=== PATIENT | male | born 1955 | race Caucasian/White ===

== ENCOUNTER 2024-02-23 10:36 | Outpatient (AMB) | payer MEDICARE, SELFPAY ==
--- NOTE | 2024-02-23 10:59 | HO.SPINEOV ---
Intake Visit Reasons: second opinion spinal stenosis Intake Note: Mr. Graves is here today for a second opinion spinal stenosis. Tax Representative Required: No Allergies statins Adverse Reaction (Uncoded 02/23/24 11:03) pain in the legs Assessment & Plan Assessment & Plan (1) Lumbar stenosis with neurogenic claudication: Code(s): M48.062 - Spinal stenosis, lumbar region with neurogenic claudication Category: Medical Plan Dear colleague On 02/23/2024 I saw for 2nd opinion Dustin Oh with a chief complaint of bilateral leg pain and numbness. HPI: This 68-year-old active male fell multiple times after pickleball. Several months later he developed severe shooting pains down his legs and numbness. The symptoms are going on for approximately 1 year. He has a constant pain in her right upper thigh and a diffuse pain in both legs that can altered [place] in location. He wakes up in the morning with numbness of both his legs. He tried 3 epidural steroid injections which gave him temporary good relief. When they wear off he can hardly walk and he is on the ground from pain . The symptoms significantly affect his daily function. Gabapentin provides no relief. He takes anti-inflammatory drugs and Tylenol. He tried physical therapy without success. PMH: Hypertension and hypercholesterolemia Medications: Lisinopril, Justin Allergies: Statins Social history: . Retired. Active aviator. Physical Exam: Pleasant male accompanied by his . The epidural steroid injection is still active and therefore he does not have a lot of complaints on exam. There is mild numbness in the bilateral L5 area. Motor exam is intact. Reflexes are low. No pathological reflexes. Radiological Studies: MRI done at [place] on on 05/11/2023 shows severe spinal stenosis L2-3, L3-4 and L4-5 with crowding of the cauda equina above the stenosis. In addition, there is extensive arthritic changes of the lumbar spine with lumbar degenerative disc disease and collapse and facet hypertrophy. A dynamic lumbar x-ray obtained today shows a minimal L4-5 anterolisthesis without instability. No scoliosis. Impression/Plan: This patient is suffering from neurogenic claudication with neurological deficits that are affecting his daily functioning. Injections provide temporary relief. The patient is petrified fo return of those shooting electric shocks down his legs. He denies a significant amount back pain. I offered him a three-level lumbar decompression in the absence of major back pain. I described the procedure that will be done in day surgery and expected postoperative course. I quoted him an 80% success rate for relief of his neurogenic symptoms. Patient will call my office if he wants me to perform the procedure. Thank you for allowing me to participate in your patients care. total time spent was sixty minutes in counseling ,coordination of plan, personal review of imaging, surgical decision making and subsequent plan Hayden Perez MD, PhD Spine Fellowship Trained Neurosurgeon Director, [facility] Orders: Orders XR lumbar spine 4V min Today M48.062 - Spinal stenosis, lumbar region with neurogenic claudication Coding Level of Care Code New Pt Level 5 (75513) Diagnoses Lumbar stenosis with neurogenic claudication M48.062
== END 2024-02-23 12:48 | disposition home or self-care (01) ==
PROVIDERS: Visit Provider Neurological Surgery
DX: M48.062 Spinal stenosis, lumbar region with neurogenic claudication (principal)
CPT/HCPCS: 99205

== ENCOUNTER 2024-02-23 10:36 | Outpatient (REF) | payer MEDICARE, SELFPAY ==
--- NOTE | ~2024-02-23 | XR_ITS ---
EXAMINATION: XR LUMBOSACRAL SPINE WITH OBLIQUES CLINICAL INFORMATION: Spinal stenosis lumbar region. COMPARISON: None available. TECHNIQUE: 4 views of the lumbar spine inclusive AP, lateral, flexion and extension. FINDINGS: Advanced multilevel lumbar spondylosis with advanced loss of disc space height at L2-L3, L3-L4, L4-L5, and L5-S1. Multilevel facet arthritis. Grade 1 anterolisthesis of L4 on L5 with flexion and extension. Mild grade 1 retrolisthesis of L3 on L4 with flexion and extension. Anterolisthesis of L5 on S1 with flexion and extension. XR/XR lumbar spine 4V min IMPRESSION: Advanced multilevel lumbar spondylosis.
== END 2024-02-23 10:37 | disposition home or self-care (01) ==
LOC: HO.HOSX 10:36
PROVIDERS: Visit Provider Neurological Surgery
DX: M48.062 Spinal stenosis, lumbar region with neurogenic claudication (principal); M47.16 Other spondylosis with myelopathy, lumbar region; M47.26 Other spondylosis with radiculopathy, lumbar region
CPT/HCPCS: 72110; 99202